=== PATIENT | male | born 1980 | race Caucasian/White ===

== ENCOUNTER 2023-09-13 13:33 | Emergency (ER) | payer OTHER, MEDICAID, SELFPAY ==
[2023-09-13 13:37] VITALS: BP 153/102; PULSE 64; RESP 14; TEMP 36.7; O2SAT 94
--- NOTE | 2023-09-13 13:45 | DI.CT_ITS ---
Exam(s) CT LOWER EXTREMITY RT W EXAM: CT LOWER EXTREMITY RT W CLINICAL HISTORY: post-op infxn, proximal thigh swell over revision. TECHNIQUE: Imaging Protocol: Axial computed tomography images with coronal and sagittal reformatted images were created and reviewed. CONTRAST MATERIAL: Intravenous: Omnipaque 350. Contrast Volume: 100 ML COMPARISON: No exams were available for comparison FINDINGS: Bones: The patient has a right total hip replacement. No suspicious lucencies are seen about the or thopedic hardware. There is artifact in the hip secondary to the orthopedic hardware. The bones are normally mineralized. No cellulitic or osteomyelitic changes are identified. No lytic or sclerotic lesions are identified. Soft Tissues: In the soft tissues anterior to the right total hip replacement there is an iencapsulat ed fluid collection measuring 5.5 AP by 7.2 transverse by 5.6 cm craniocaudad. There is a smaller mo re superficial fluid collection laterally measuring 3.7 x 1.3 cm. These may represent abscesses, ser omas or resolving hematomas. IMPRESSION: 1. Right total hip replacement hardware which appears unremarkable. 2. Two fluid collections adjacent to the right hip. The larger measures 5.5 x 7.2 x 5.6 cm. The sma ller more superficial fluid collection measures 3.7 x 1.3 cm. Differential considerations include ab scesses, seromas or resolving hematomas. RADIATION DOSE DELIVERED: 646.98mGy.cm Total DLP 646.98mGy.cm Total DLP DATA REPOSITORY: All CT scans at this facility are submitted to the National Radiology Data Registry (NRDR) Dose Index Registry (DIR) with the [employer] ([employer]). RADIATION OPTIMIZATION: All CT scans at this facility use at least one of these dose optimization te chniques: automated exposure control; mA and/or kV adjustment per patient size (includes targeted exa ms where dose is matched to clinical indication); or iterative reconstruction.
--- NOTE | 2023-09-13 13:46 | ED.GENADUL_ITS ---
Discharge Plan Disposition Patient Disposition: Home Condition: Stable Discharge Details Clinical Impression: Acute postoperative pain of right hip Primary Care Provider: Unknown,Unknown ED Provider: Arnold Steele Home Meds and New Rx's Prescriptions: Continued cefazolin 10 gram recon soln 10 g IV Q8H methotrexate sodium 2.5 mg tablet 5 mg PO QWEEK cephalexin 500 mg capsule 500 mg PO Q6H Patient Comments: TAKE ONE CAPSULE BY MOUTH EVERY 6 HOURS FOR 14 DAYS folic acid 1 mg tablet 1 mg PO DAILY Patient Comments: TAKE 1 TABLET BY MOUTH EVERY DAY oxycodone 5 mg tablet 5 mg PO Q6H PRN ProAir RespiClick 90 mcg/actuation aerosol powdr breath activated 1 inh INHALATION Q4H PRN Patient Comments: INHALE 1 TO 2 PUFFS BY MOUTH EVERY 4 HOURS NEEDED hydroxychloroquine 200 mg tablet 200 mg PO DAILY Patient Comments: TAKE 1 TABLET BY MOUTH DAILY. NEED ANNUAL EYE EXAM. aspirin 81 mg capsule 81 mg PO DAILY Discharge Instructions Instructions: Joint Replacement Surgery (DC), Hip Pain (ED) Additional Instructions: You were seen in the emergency department for your postoperative right hip pain. You have had a revision with washout. Your labs all show improving markers of significant infection and sepsis was ruled out by laboratory workup. I spoke with [facility] orthopedics and they would like you to call the office tomorrow to speak with Dr. Bender's staff, they would likely follow-up in the short-term with you. Please continue to ice the area, use your prescription and [id number] pain medicines. I did push your CT scan images over to their electronic image system at [facility] so they can review what we have done here today. Your white count is vastly improved, it is just above normal at 12, your inflammatory markers are mildly elevated over your last lab draw which is nonspecific and does not mean your infection is getting significantly worse. If you develop fever nausea vomiting or redness at the site of infection or inability to move your leg at all please return to [facility] ER so that the orthopedic service can consult in their ER. Referrals: [facility] [Outside] Discharge Data Discharge Date/Time-TO BE ENTERED AT DEPARTURE: 09/13/23 16:55 HPI General Date/Time Provider Initiated Documentation: 09/13/23 13:35 . HPI Narrative: 43 year-old male presents to ED today by POV/ambulating with his with a chief complaint of continued R hip pain, s/p R RICKEY on 08/19/23 at [facility], with revision after post-operative infection for wash-out. Has PICC line for his staph infection- presents with increasing severe pain- chills/sweats last night with onset the past few days. Quality described as throbbing pain and swelling at his surgical site, no radiation to redness, warmth to touch, does endorse severe pain with ambulation and passive ROM. Severity is described as 10/10. Palliating factors include taking his antibiotics as Rx'd, has percocet for pain- not helping. Provoking factors include nothing specific. 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 Patient not anticoagulated. Related Data Home Medications Medication Instructions Recorded Confirmed albuterol sulfate 90 mcg/actuation 1 inh inhalation Q4H PRN 09/13/23 09/13/23 breath activated powder inhaler (ProAir RespiClick) aspirin 81 mg capsule 81 mg PO DAILY 09/13/23 09/13/23 cefazolin 10 gram solution for 10 g IV Q8H 09/13/23 09/13/23 injection cephalexin 500 mg capsule 500 mg PO Q6H 09/13/23 09/13/23 folic acid 1 mg tablet 1 mg PO DAILY 09/13/23 09/13/23 hydroxychloroquine 200 mg tablet 200 mg PO DAILY 09/13/23 09/13/23 methotrexate sodium 2.5 mg tablet 5 mg PO QWEEK 09/13/23 09/13/23 oxycodone 5 mg tablet 5 mg PO Q6H PRN 09/13/23 09/13/23 Allergies Allergy/AdvReac Type Severity Reaction Status Date / Time No Known Allergies Allergy Unverified 09/13/23 13:45 General Stated Complaint: Orthopedic KIRTI: 3 Review of Systems All systems reviewed & are unremarkable except as noted in HPI and below Exam Narrative Exam Narrative: GENERAL APPEARANCE: Well-nourished, non-toxic, awake and alert, atraumatic, no acute distress. SKIN: Warm, pink, dry, intact, without rashes/lesions/ulcerations. HEAD: Normocephalic, atraumatic, normal hair distribution for gender/age. EYES: Pupils PERRLA, EOMs intact without nystagmus, normal conjunctiva, no exudates on lids/lashes. ENT: Nares patent, no circumoral cyanosis, no facial swelling NECK: Supple, trachea midline, painless cervical ROM. LUNGS/CHEST: Lungs CTA bilaterally- no rhonchi/rales/wheezes diffusely, non- labored respirations, normal A/P diameter, symmetrical expansion, no chest wall deformity HEART (CV/PV): Regular rate and rhythm without murmur, no peripheral edema, no JVD. ABDOMEN: Soft, non-distended, no guarding. MSK: Normal ROM, no swelling/deformity to bilateral UEs or LEs, moving all extremities without weakness, no cyanosis, spine midline without tenderness, normal curvature. R Hip: Swelling over the surgical site at the right proximal anterior thigh, diffuse pain with palpation without erythema of the skin around the entire hip and proximal thigh, no warmth to touch, pain with passive range of motion with SLR, benign abdomen NEURO: Mental Status AAOx4 - alert to person, place, time, events No facial droop, no forehead involvement. Motor: No focal weakness - strength 5/5 in bilateral UEs and LEs, proximal and distal, symmetric. Sensory: sensation intact to light touch globally. Gait antalgic. PSYCH: euthymic, cooperative, pleasant, appropriate speech Course Vital Signs Vital signs: Vital Signs Temperature 36.7 C 09/13/23 13:37 Pulse 64 09/13/23 13:37 Respiratory Rate 14 09/13/23 13:37 Blood Pressure 153/102 H 09/13/23 13:37 Pulse Oximetry 94 09/13/23 13:37 Temperature 36.7 C 09/13/23 13:37 Temperature Source Temporal Artery Scan 09/13/23 13:37 Pulse 64 09/13/23 13:37 Respiratory Rate 14 09/13/23 13:37 Blood Pressure 153/102 H 09/13/23 13:37 Pulse Oximetry 94 09/13/23 13:37 Oxygen Delivery Method Room Air 09/13/23 13:37 Oxygen Flow Rate 0 09/13/23 13:37 Pain Level 9 09/13/23 13:37 Medical Decision Making This dictation utilizes [id number] dictation software and may contain unedited grammatical errors. 43 y/o M presents to ED today with a chief complaint of right hip pain, status post total hip replacement at [facility] on August 19, 2023, he had a revision with a known staph infection in the joint, he has a PICC line currently for antibiotics (cefazolin), he woke up in severe pain last night, has had almost no improvement since 3 days postinitial operation. He has a clean hip arthrocentesis at [facility] on 09/07/2023. He is taking Percocet without relief, he denies overt fevers but does endorse some chills and sweats, there is no severe redness over the proximal thigh or right hip at his surgical site but there is some swelling without bruising. Patients' medical history: Bechet's disease, osteoarthritis of the hip, chronic hepatitis C, mild intermittent asthma. Family and social history: noncontributory. Pertinent exam findings / vital signs include R Hip: Swelling over the surgical site at the right proximal anterior thigh, diffuse pain with palpation without erythema of the skin around the entire hip and proximal thigh, no warmth to touch, pain with passive range of motion with SLR, benign abdomen Differential / pathologies of concern include septic arthritis, postoperative complication, sepsis. Diagnostic studies of: -CBC, CMP, CRP/ESR, lactate, procalcitonin, blood cultures, CT lower extremity right with. -CBC shows leukocytosis to 12, on MTX - was 20 at [facility] on 09/02/23 -ESR 52 - was 40 at [facility] -Lactate 0.9 -CMP benign -CRP 3.33, was 2.52 at [facility] 09/01 -Procalcitonin 0.1, unlikely septic -Blood Cx's pending -CT R Lower Extremity w Contrast shows periprosthetic fluid collection, expected result Interventions of: -IVF, IV Tylenol, IV hydromorphone. ED Course/Assessment/Plan: 43-year-old male presents after complex course of right RICKEY performed on August 18, and postoperative infection with washout both done at [facility]. States he has been feeling quite ill for the past 3 days with chills and sweats feels like he is getting an infection again, has a PICC line for antibiotics for his known staph infection postoperatively. He is on methotrexate. His sed rate is rising but is CBC shows a decreasing leukocytosis from 20 down to 12 over the past 6 days. His lactate is normal. CRP is mildly increased compared to 09/01 values. Patient signed out to Mitzi Seugra PA-C at shift change with pending orthopedic consult from [facility]- they will follow-up with the patient tomorrow. Fluid is expected on imaging, they may need to replace hardware. Findings not consistent with sepsis, gross appearance of cellulitis, had clean arthrocentesis and is on Cefazolin, defer to follow-up at orthopaedics, do not suspect need for admission at this time. Disposition of Acute Postoperative Pain of Right Hip. Patient verbalized understanding of the plan and return to ED criteria and engaged in shared decision making. Medical Records Medical records reviewed: Yes I reviewed the patient's medical records. Imaging Data Radiologic Study: Attestation: I personally reviewed and interpreted this imaging study as follows: Imaging: CT Scan Radiologist's impression: Exam: CT Right Lower Extremity With Contrast; Thigh Exam date and time: 09/13/2023 2:53 PM Age: 43 years old Clinical indication: Other: Post-op infxn, proximal thigh swell over revision; Prior surgery; Surgery date: <1 month; Surgery type: Total hip TECHNIQUE: Imaging protocol: CT of the right lower extremity with intravenous contrast was performed. Exam focused on the thigh. Contrast material: OMNIPAQUE 350; Contrast volume: 100 ml; Contrast route: INTRAVENOUS (IV); COMPARISON: No relevant prior studies available. FINDINGS: Bones/joints: Total right hip arthroplasty shows no signs of component displacement or bone stock fracture. Soft tissues: The anterolateral soft tissues have a fluid collection measuring 5.8 x 5.9 x 6.8 cm. Peripheral to this is a smaller geographic fluid collection extending close to skin surface measuring 2.8 cm towards the skin, 5.9 cm craniocaudally and up to 1.6 cm in thickness. IMPRESSION: Fluid collections adjacent to the new total hip prosthesis. These are amenable to percutaneous puncture and drainage. Dictated and Authenticated by: Josef Dowd MD. Ordering:MARVEL Barrett MD Lab Data Lab results reviewed: Yes I reviewed the patient's lab results. Labs: 09/13/23 14:30 Blood Blood Culture - Pending 09/13/23 13:50 Blood Blood Culture - Pending Laboratory Tests Range/Units 09/13/23 09/13/23 13:50 14:15 WBC (4.4-10.8) 10^3/uL 12.27 H RBC (4.36-5.78) 10^6/uL 3.75 L Hgb (13.5-17.5) g/dL 10.8 L Hct (40.0-50.0) % 31.7 L MCV (80-95) fL 85 MCH (27.0-33.0) pg 28.8 MCHC (32.0-36.0) % 34.1 RDW (11.8-14.1) % 12.9 Plt Count (130-400) 10^3/uL 464 H MPV (8.0-11.0) fL 8.3 Immature Gran % 1.1 Neutrophils % 62.4 Lymphocytes % 25.8 Monocytes % 7.2 Eosinophils % 2.8 Basophils % 0.7 Nucleated RBC % (0.0-0.3) % 0.0 Absolute Neutrophils (1.2-6.7) 10^3/uL 7.66 H Absolute Lymphocytes (1.2-3.4) 10^3/uL 3.17 Absolute Monocytes (0.1-0.8) 10^3/uL 0.88 H Absolute Eosinophils (0.0-0.7) 10^3/uL 0.34 Absolute Basophils (0.0-0.2) 10^3/uL 0.09 ESR (0-15) mm/hr 52 H VBG Lactate (0.6-1.4) mmol/L 0.9 Sodium (136-145) mmol/L 140 Potassium (3.5-5.1) mmol/L 3.8 Chloride (98-107) mmol/L 103 Carbon Dioxide (21.0-32.0) mmol/L 23.9 Anion Gap (3-11) mmol/L 13.1 H BUN (7-18) mg/dL 8 Creatinine (0.70-1.30) mg/dL 1.0 Est GFR (CKD-EPI 2020) (mL/min/1.73m2) 96.97 Glucose (74-106) mg/dL 95 Calcium (8.5-10.1) mg/dL 8.9 Total Bilirubin (0.2-1.0) mg/dL 0.3 AST (15-37) U/L 14 L ALT (16-63) U/L 10 L Alkaline Phosphatase (46-116) U/L 81 C-Reactive Protein (<or=0.5) mg/dL 3.33 H Total Protein (6.4-8.2) g/dL 8.0 Albumin (3.4-5.0) g/dL 3.6 Procalcitonin ng/mL < 0.1 Quality:SDOH Health Related Social Needs: No Data to Display PFSH All Active Problems (Updated 09/13/23 @ 15:30 by JONATHON Fung) Acute postoperative pain of right hip (Acute) Social History Smoking/Tobacco Use Status: Former Tobacco Use Smoking risk assessment performed?: Yes Alcohol Intake: never Drug use: Never Substance use type: does not use Do you feel safe at home: Yes Do you feel safe in your relationship?: Yes
[2023-09-13] MEDS: ACETAMINOPHEN 1,000 MG/100 ML BTL 400 MG IVPB (14:18)
[2023-09-13] MEDS: HYDROmorphone 2 MG/ML SYR 1 MG IVP (14:20)
[2023-09-13] MEDS: Ondansetron 4 MG/2 ML VIAL IVP (14:20)
[2023-09-13 14:21] LABS: Lactate 0.9 mmol/L (0.6-1.4)
[2023-09-13 14:22] LABS: Abs Immature Grans 0.13 10^3/uL (0.0-0.06); Absolute Basophil Count 0.09 10^3/uL (0.0-0.2); Absolute Eosinophil Count 0.34 10^3/uL (0.0-0.7); Absolute Lymphocyte Count 3.17 10^3/uL (1.2-3.4); Absolute Monocyte Count 0.88 10^3/uL (0.1-0.8); Absolute Neutrophil Count 7.66 10^3/uL (1.2-6.7); Basophils % 0.7; Eosinophils % 2.8; HCT 31.7 % (40.0-50.0); HGB 10.8 g/dL (13.5-17.5); Immature Grans % 1.1; Lymphocytes % 25.8; MCH 28.8 pg (27.0-33.0); MCHC 34.1 % (32.0-36.0); MCV 85 fL (80-95); MPV 8.3 fL (8.0-11.0); Monocytes % 7.2; Neutrophils % 62.4; Platelet Count 464 10^3/uL (130-400); RBC 3.75 10^6/uL (4.36-5.78); RDW 12.9 % (11.8-14.1); RDW-SD 39.3 fL; WBC 12.27 10^3/uL (4.4-10.8)
[2023-09-13 14:24] LABS: ESR 52 mm/hr (0-15)
[2023-09-13 14:38] LABS: ALT 10 U/L (16-63); AST 14 U/L (15-37); Albumin 3.6 g/dL (3.4-5.0); Alkaline Phosphatase 81 U/L (46-116); Anion Gap 13.1 mmol/L (3-11); BUN 8 mg/dL (7-18); Bilirubin, Total 0.3 mg/dL (0.2-1.0); C-Reactive Protein 3.33 mg/dL (<or=0.5); CO2 23.9 mmol/L (21.0-32.0); Calcium 8.9 mg/dL (8.5-10.1); Chloride 103 mmol/L (98-107); Estimated GFR 96.97 (mL/min/1.73m2); Glucose 95 mg/dL (74-106); Potassium 3.8 mmol/L (3.5-5.1); Sodium 140 mmol/L (136-145)
[2023-09-13 14:53] LABS: Procalcitonin < 0.1 ng/mL
[2023-09-13] MEDS: Normal Saline - Diluent 50 ML VIAL IJ (14:55)
[2023-09-13] MEDS: Omnipaque 350 MG/ML 100 ML BTL IJ (14:56)
[2023-09-13] MEDS: Normal Saline Flush 10 ML SYR IVP (14:59)
[2023-09-13 15:11] VITALS: BP 125/74; PULSE 89; RESP 14; O2SAT 95
--- NOTE | 2023-09-13 15:55 | DI.VRAD_ITS ---
PROCEDURE INFORMATION: Exam: CT Right Lower Extremity With Contrast; Thigh Exam date and time: 09/13/2023 2:53 PM Age: 43 years old Clinical indication: Other: Post-op infxn, proximal thigh swell over revision; Prior surgery; Surgery date: <1 month; Surgery type: Total hip TECHNIQUE: Imaging protocol: CT of the right lower extremity with intravenous contrast was performed. Exam focused on the thigh. Contrast material: OMNIPAQUE 350; Contrast volume: 100 ml; Contrast route: INTRAVENOUS (IV); COMPARISON: No relevant prior studies available. FINDINGS: Bones/joints: Total right hip arthroplasty shows no signs of component displacement or bone stock fracture. Soft tissues: The anterolateral soft tissues have a fluid collection measuring 5.8 x 5.9 x 6.8 cm. Peripheral to this is a smaller geographic fluid collection extending close to skin surface measuring 2.8 cm towards the skin, 5.9 cm craniocaudally and up to 1.6 cm in thickness. IMPRESSION: Fluid collections adjacent to the new total hip prosthesis. These are amenable to percutaneous puncture and drainage. Dictated and Authenticated by: Josef Dowd MD. Ordering:MARVEL Barrett MD
--- NOTE | 2023-09-14 16:33 | W.EDPROG ---
Date of service: 09/13/23 Time of Service: 18:43 Medical Decision Making Care accepted in signout Pending CT scan which shows effusion, case was discussed with Dr. Wetzel orthopedist for [place] [facility] and states that patient had debridement on and this was a seroma and not abscess after being cultured and patient is on outpatient IV cefazolin regardless and was positive for staph previously Patient is afebrile and nontoxic no significant leukocytosis, lactate and procalcitonin are negative Orthopedics will follow up with this patient tomorrow and patient is comfortable with this plan Discharged home in stable condition with stable vitals afebrile, nontoxic and specifically no evidence of septic joint Quality:SDOH Health Related Social Needs: No Data to Display Discharge Plan Disposition Patient Disposition: Home Condition: Stable Discharge Details Clinical Impression: Acute postoperative pain of right hip Primary Care Provider: Unknown,Unknown ED Provider: Arnold Steele Home Meds and New Rx's Prescriptions: Continued cefazolin 10 gram recon soln 10 g IV Q8H methotrexate sodium 2.5 mg tablet 5 mg PO QWEEK cephalexin 500 mg capsule 500 mg PO Q6H Patient Comments: TAKE ONE CAPSULE BY MOUTH EVERY 6 HOURS FOR 14 DAYS folic acid 1 mg tablet 1 mg PO DAILY Patient Comments: TAKE 1 TABLET BY MOUTH EVERY DAY oxycodone 5 mg tablet 5 mg PO Q6H PRN ProAir RespiClick 90 mcg/actuation aerosol powdr breath activated 1 inh INHALATION Q4H PRN Patient Comments: INHALE 1 TO 2 PUFFS BY MOUTH EVERY 4 HOURS NEEDED hydroxychloroquine 200 mg tablet 200 mg PO DAILY Patient Comments: TAKE 1 TABLET BY MOUTH DAILY. NEED ANNUAL EYE EXAM. aspirin 81 mg capsule 81 mg PO DAILY Discharge Instructions Instructions: Joint Replacement Surgery (DC), Hip Pain (ED) Additional Instructions: You were seen in the emergency department for your postoperative right hip pain. You have had a revision with washout. Your labs all show improving markers of significant infection and sepsis was ruled out by laboratory workup. I spoke with [facility] orthopedics and they would like you to call the office tomorrow to speak with Dr. Bender's staff, they would likely follow-up in the short-term with you. Please continue to ice the area, use your prescription and [id number] pain medicines. I did push your CT scan images over to their electronic image system at [facility] so they can review what we have done here today. Your white count is vastly improved, it is just above normal at 12, your inflammatory markers are mildly elevated over your last lab draw which is nonspecific and does not mean your infection is getting significantly worse. If you develop fever nausea vomiting or redness at the site of infection or inability to move your leg at all please return to [facility] ER so that the orthopedic service can consult in their ER. Referrals: [facility] [Outside] Discharge Data Discharge Date/Time-TO BE ENTERED AT DEPARTURE: 09/13/23 16:55
== END 2023-09-13 16:55 | disposition home or self-care (01) ==
PROVIDERS: Emergency Provider Physician Assistant
DX: G89.18 Other acute postprocedural pain (principal); M25.551 Pain in right hip; Z96.641 Presence of right artificial hip joint; Z87.891 Personal history of nicotine dependence
CPT/HCPCS: 00123; 36415; 80053; 84145; 85652; 87040; 96374; 96375; 99285; 73701; 83605; 85025; 86140; 99284; J0131; J1170; J2405; J3490